=== PATIENT | male | born 1970 | race Caucasian/White ===

== ENCOUNTER 2020-01-24 09:09 | Observation (INO) | payer SELFPAY ==
[2020-01-24] MEDS ORDERED: Morphine 4 MG/ML VIAL SLOW IVP PRN (10:36)
[2020-01-24] MEDS ORDERED: Nitroglycerin 0.4 MG TAB (25 Tab Bottle) SL PRN (10:36)
[2020-01-24] MEDS ORDERED: Aspirin 325 mg Enteric Coated Tablet PO SCH (11:00)
[2020-01-24 12:32] VITALS: BMI 32.3
[2020-01-24 13:09] LABS: Troponin I Less than 0.010 ng/mL (< 0.028)
[2020-01-24] MEDS ORDERED: Ketorolac Tromethamine 30 MG/ML VIAL IVP SCH (18:15)
[2020-01-24] MEDS ORDERED: Sodium Chloride 0.9% 10 ML ONE (20:34)
--- NOTE | 2020-01-24 20:57 | HP ---
CHIEF COMPLAINT: Chest pain. HISTORY OF PRESENT ILLNESS: The patient is a 49-year-old male with a past medical history of hypertension, who presents to the hospital with complaints of chest tightness x1 day. The patient stated that the pain woke him up around 5 this a.m. He felt a sharp pain, then felt some tightness. He stated that he got up, sat up and drank some water, walked around and then the pain subsided. However, he continued to have this pain, so his brought him to the hospital. He denies any nausea or vomiting, however, felt a little cold. No diaphoresis. He denies any radiation of the pain except from his chest area to his back. Denies any shortness of breath, orthopnea, or PND. The patient states that this has happened to him once before, which resolved spontaneously. He denies any heavy lifting and has not been stressed recently. PAST MEDICAL HISTORY: He has a history of hypertension. He has a history of adult asthma, however, is currently not on any medications for that. PAST SURGICAL HISTORY: He has had appendectomy. FAMILY HISTORY: Mother had heart failure. Father had cancer. SOCIAL HISTORY: He smokes a pack a week and drinks socially. However, yesterday, he had four beers. Denies any drug use. He is a full code. Lives with his . REVIEW OF SYSTEMS: All negative except for the ones mentioned above in the HPI. PHYSICAL EXAMINATION: VITAL SIGNS: Temperature 98.7, 63, 18, 98% on room air, 124/82. GENERAL: He is awake, alert, and oriented x3. Does not appear in distress. CV: S1, S2 present. No murmurs, rubs, or gallops. LUNGS: Clear to auscultation. No rhonchi or wheezes noted. ABDOMEN: Soft. Bowel sounds present x2. Mild pain upon palpation to his epigastric and right upper quadrant. EXTREMITIES: No edema. Pedal pulses present x2. NEUROLOGIC: No focal deficits noted. SKIN: No cuts, lesions or bruises noted. LABORATORY DATA: Upon reviewing Liliana, most of his labs appear to be normal. WBCs of 6.9, hemoglobin of 15.5, hematocrit of 49.1, platelets of 208. Chemistry; sodium of 140, potassium 4.3, BUN of 11, creatinine 1.16. Troponin x3 were negative. TSH was normal. His LFTs were completely normal. His urine was not tested. He did have a CT dissection, which indicated a 2 cm gallstone at the fundus. Aortic dissection was noted. All pulmonary embolism was noted. ASSESSMENT AND PLAN: 1. The patient is a very pleasant 49-year-old male, who presents to the hospital with chest pain, which appears atypical in nature. Differential is of course cardiac versus musculoskeletal versus gastroesophageal reflux disease. The patient states that his pain gets worse when he lies back and he describes it as a sharp pain. Also pericarditis is definitely a possibility. We will go ahead and get an echocardiogram on this patient. We will start patient on some Toradol and some Protonix. Also, stress test has already been ordered, first part has been done, second part is pending for tomorrow. We will also get a right upper quadrant ultrasound. However, unlikely to be gallbladder etiology since his LFTs are completely normal and the stone is at the fundus. Also, I will go ahead and get an echocardiogram and continue to monitor, unlikely to be pulmonary related since his lungs are completely clear. I did ask him if he has a history of anxiety, he states that he does sometimes gets anxious, however his anxiety attacks are quite different. 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 However, his troponins x3 has been negative. 2. Hypertension. We will continue his home medications. 3. Deep venous thrombosis prophylaxis. We will put patient on SCDs. Job ID: [id number]
[2020-01-24] MEDS: Atorvastatin Calcium 40 MG TAB PO SCH (21:02)
[2020-01-25] MEDS ORDERED: Sodium Chloride 0.9% 10 ML ONE (02:25)
[2020-01-25] MEDS: Ketorolac Tromethamine 30 MG/ML VIAL IVP SCH ×3 (02:29→19:19)
[2020-01-25] MEDS: Enoxaparin Sodium 40 MG/0.4 ML SYRINGE SC SCH (08:55)
[2020-01-25] MEDS ORDERED: Aspirin 325 mg Enteric Coated Tablet PO SCH (09:00)
[2020-01-25 09:25] LABS: #Eosinphils 0.1 thou/uL (0.0-0.7); #Lymphocytes 1.3 thou/uL (1.20-3.40); #Monocytes 0.5 thou/uL (0.11-0.59); #Neutrophils 3.1 thou/uL (1.40-6.50); %Basophils 0.2 % (0.0-1.0); %Eosinophils 1.7 % (0.0-10.0); %Lymphocytes 25.3 % (21.0-51.0); %Monocytes 9.2 % (0.0-10.0); %Neutrophils 63.5 % (42.0-75.0); Hemoglobin 15.6 g/dL (14.0-18.0); Mean Corpuscular Hemoglobin 32.5 pg (27.0-31.0); Mean Corpuscular Volume 95.6 fL (78.0-98.0); Mean Platelet Volume 8.4 fL (7.4-10.4); Platelet Count 194 thou/uL (130-400); RBC Distribution Width 11.8 % (11.5-14.5); Red Blood Cell (RBC) Count 4.79 mill/uL (4.70-6.10); White Blood Cell (WBC) Count 4.9 thou/uL (4.8-10.8)
[2020-01-25 09:45] LABS: Anion Gap 12 mmol/L (10-20); BUN (Urea Nitrogen) 17 mg/dL (8.9-20.6); Calc. Creatinine Clearance 119 mL/min (70-130); Calcium 9.3 mg/dL (7.8-10.44); Carbon Dioxide 24 mmol/L (22-29); Chloride 106 mmol/L (98-107); Estimated GFR-MDRD 70; Glucose 106 mg/dL (70-105); Potassium 4.6 mmol/L (3.5-5.1); Sodium 137 mmol/L (136-145)
[2020-01-25] MEDS ORDERED: ADENOSINE 60 MG/20 ML VIAL ONE (10:09)
--- NOTE | 2020-01-25 10:21 | ULT ---
RIGHT UPPER QUADRANT ULTRASOUND: HISTORY: History of abdominal pain. COMPARISON: CTA aortic dissection protocol dated 01/24/2020. FINDINGS: There is diffuse fatty liver. There is a small gallstone within the gallbladder. There is mild gall bladder wall thickening. There is report of a positive sonographic Dai's sign. The pancreas is l argely obscured by overlying bowel gas. There is appropriate hepatopetal flow within the main portal vein. The common bile duct is normal measuring 3.9 mm. The right kidney measured 9.8 cm in length without evidence of hydronephrosis. IMPRESSION: 1. Cholelithiasis, gallbladder wall thickening, and report of sonographic Dai's sign is suspiciou s for acute calculus cholecystitis. 2. Fatty liver. POS: BH
--- NOTE | 2020-01-25 11:37 | NM ---
Nuclear medicine Cardiac myocardial perfusion SPECT Ejection fraction study Wall motion cine: DATE:01/24/2020 10:35 AM INDICATION: Chest pain TECHNIQUE: Number of days:2 Rest Study: Technetium 99m-sestamibi (Cardiolite) dose:27.7 mCi Stress study: Technetium 99m-sestamibi (Cardiolite) dose:32.90 mCi FINDINGS: Cardiac (myocardial perfusion) SPECT There are no reversible myocardial perfusion defects. Ejection fraction study Left ventricular EF = 69% Wall motion cine Normal wall motion and thickening. IMPRESSION: No evidence of reversible myocardial ischemia.
--- NOTE | 2020-01-25 11:46 | PDOC.HOSPP ---
- Subjective Encounter Date: 01/25/20 Encounter Time: 11:45 Subjective: Mr. Borges was seen today in follow-up of chest pain. He notes some soreness in the right mid chest region, when he takes in a breath. He notes some indigestion off and on as well. - Objective Vital Signs & Weight: Vital Signs (12 hours) Temp Pulse Resp BP Pulse Ox 01/25/20 08:05 97.6 F 72 14 109/75 96 01/25/20 07:10 97 01/25/20 05:26 96 01/25/20 03:22 97.8 F 73 20 120/64 96 Weight Weight 229 lb 11.2 oz I&O: 01/24/20 01/25/20 01/26/20 06:59 06:59 06:59 Intake Total 740 Balance 740 Result Diagrams: 01/25/20 09:02 01/25/20 09:02 Hospitalist ROS - Medication Medications: Active Medications Generic Name Dose Route Start Last Admin Trade Name Freq PRN Reason Stop Dose Admin Aspirin 325 mg 01/25/20 09:00 01/25/20 08:54 Ecotrin PO 325 mg DAILY TATE Administration Atorvastatin Calcium 40 mg 01/24/20 21:00 01/24/20 21:02 Lipitor PO 40 mg HS TATE Administration Enoxaparin Sodium 40 mg 01/25/20 09:00 01/25/20 08:55 Lovenox SC 40 mg 0900 TATE Administration Ketorolac Tromethamine 15 mg 01/25/20 02:00 01/25/20 09:18 Toradol IVP 01/25/20 18:01 15 mg 0200,1000,1800 TATE Administration Pantoprazole Sodium 40 mg 01/25/20 09:00 01/25/20 08:55 Protonix PO 40 mg DAILY TATE Administration - Exam Eye: PERRL, anicteric sclera Heart: RRR, no murmur, no gallops, no rubs Respiratory: CTAB, no wheezes, no rales, no ronchi, normal chest expansion Gastrointestinal: soft (+ RUQ tenderness and epigastric tenderness, no rebound or guarding) Extremities: no cyanosis, no edema Hosp A/P (1) Chest pain Code(s): R07.9 - CHEST PAIN, UNSPECIFIED Status: Acute (2) Biliary colic Code(s): K80.50 - CALCULUS OF BILE DUCT W/O CHOLANGITIS OR CHOLECYST W/O OBST Status: Acute (3) Hypertension Code(s): I10 - ESSENTIAL (PRIMARY) HYPERTENSION Status: Chronic (4) Obesity Code(s): E66.9 - OBESITY, UNSPECIFIED Status: Chronic - Plan * Chest pain / biliary Colic- Stress test is pending * Abdominal ultrasound results noted- I suspect most if not all of his symptoms are related to the gallbladder * HTN- blood pressure is stable
[2020-01-25] MEDS ORDERED: Ondansetron PF 4 MG/2 ML Vial ONE (11:49)
[2020-01-25] MEDS ORDERED: Rocuronium Bromide 10 MG/ML (10ML VIAL) ONE (11:49)
[2020-01-25] MEDS ORDERED: Lidocaine 1% PF 5 ML VIAL ONE (11:49)
[2020-01-25] MEDS ORDERED: Metoprolol Tartrate 5 MG/5 ML VIAL ONE (11:49)
[2020-01-25] MEDS ORDERED: Dexamethasone 20 MG/5 ML VIAL ONE (11:49)
[2020-01-25] MEDS ORDERED: Glycopyrrolate 0.2 MG/ML 5 ML SYRINGE ONE (11:49)
[2020-01-25] MEDS ORDERED: PROPOFOL 200 MG/20 ML VIAL ONE (11:49)
[2020-01-25] MEDS ORDERED: Fentanyl 100 MCG/2 ML VIAL ONE (14:08)
[2020-01-25] MEDS ORDERED: cefOXitin Sodium/Dextrose,Iso 2 GM in Premix Bag 1 BAG IVPB SCH (14:15)
[2020-01-25] MEDS ORDERED: cefOXitin 2 GM in Sodium Chloride 0.9% 100 ML IVPB SCH (14:15)
[2020-01-25] MEDS ORDERED: Bupivacaine 0.25% HCL 30 ML VIAL ONE ×2 (14:19→14:27)
[2020-01-25] MEDS ORDERED: EPINEPHrine 1 MG/ML AMP ONE (14:19)
[2020-01-25] MEDS ORDERED: Lidocaine 1% w/Epinephrine 1:100K 20 ML VIAL ONE (14:27)
[2020-01-25 14:35] LABS: INR-International Normal Ratio 0.9; PTT 28.8 sec (22.9-36.1); Prothrombin Time 12.4 sec (12.0-14.7)
[2020-01-25] MEDS ORDERED: Midazolam HCl 2 mg/2 ml Vial ONE (15:03)
[2020-01-25] MEDS ORDERED: traMADol HCl 50 MG TAB PO PRN (16:25)
[2020-01-25] MEDS ORDERED: Ondansetron HCl/PF 4 MG/2 ML Vial IVP PRN (16:41)
[2020-01-25] MEDS ORDERED: Promethazine HCl 25 MG/ML VIAL IM PRN (16:41)
[2020-01-25] MEDS ORDERED: Promethazine HCl 25 MG/ML VIAL SLOW IVP PRN (16:41)
[2020-01-25] MEDS ORDERED: HYDROmorphone 2 MG/ML VIAL SLOW IVP PRN (16:41)
[2020-01-25] MEDS: Acetaminophen 500 MG TAB PO SCH ×2 (19:20→23:35)
--- NOTE | 2020-01-25 19:29 | CON ---
DATE OF CONSULTATION: 01/25/2020 REQUESTING PHYSICIAN: Dr. Mic Angelo. HISTORY: A 49-year-old man with previous history of essential hypertension, for which he takes no medications. The patient was seen in the emergency department yesterday with complaint of acute onset epigastric right upper quadrant abdominal pain, which radiated to his back. Pain woke him up at approximately 0400 hours, associated with some nausea, but no emesis. He experienced similar pain about a month ago. This was also hot top liner. This was not associated with any meals or activity. The patient denies any fevers or chills. He denies any dyspnea or syncope. PAST MEDICAL HISTORY: Pertinent for essential hypertension. He currently takes no medications for it. PAST SURGICAL HISTORY: Pertinent for appendectomy. SOCIAL HISTORY: He is , lives at home with his . He is employed as a local intermodal truck driver. He smokes an equivalent of one pack of cigarettes per day for over 30 years. He admits to occasional intake of ethanol in moderate amount. He denies any illicit drug abuse. FAMILY HISTORY: Notable for heart disease in his mother who from complications thereof. Father was diagnosed with cancer. He does not recall the specifics. He denies any family history of diabetes mellitus or any other gastrointestinal disorders. CURRENT MEDICATIONS: None. The patient, however, did receive some aspirin and prophylactic dose of enoxaparin. ALLERGIES: TO CEPHALEXIN, WHICH ACCORDING TO THE PATIENT GIVES HIM "HOT FLASHES." REVIEW OF SYSTEMS: Ten-point review of systems essentially unremarkable except as stated in past medical history and chief complaint. PHYSICAL EXAMINATION: GENERAL: This reveals a 49-year-old normally developed man, who is otherwise coherent, interactive, and appears stated age. The patient is alert and oriented x3, appears to be in no acute distress at the time of my evaluation. VITAL SIGNS: Include blood pressure 114/73, pulse 76, respiratory rate is 18, temperature is 97.6 degrees Fahrenheit, oxygen saturation is 97% on room air. HEENT: Reveals normocephalic and atraumatic. His pupils are equal, round, reactive to light and accommodation. He has no scleral icterus present. HEART: Reveals regular rate and rhythm. No murmurs or gallops auscultated. LUNGS: Clear to auscultation bilaterally. Breathing, regular and nonlabored. ABDOMEN: Soft and obese. He has right upper quadrant tenderness to palpation. He has a positive Dai sign. Liver and spleen otherwise nonpalpable below costal margins. NEUROLOGIC: Reveals no focal deficits present. LABORATORY FINDINGS: Today include a CBC with 4900 white blood cells, hemoglobin and hematocrit 15.6 and 45.8 respectively, platelet count is 194,000. Metabolic profile: Sodium 137, potassium 4.6, chloride is 106, bicarb is 24, BUN is 17, creatinine is 1.11, glucose is 106. Troponin I from yesterday was less than 0.10. AST and ALT yesterday were normal at 14 and 21 respectively, and so was the total bilirubin at 0.6 mg/dL. I have personally reviewed the abdominal ultrasound which is remarkable for solitary gallstone impacting gallbladder neck. There is gallbladder wall thickening with no pericholecystic fluid present. Common bile duct is normal in diameter for this patient's age at 3.9 mm. IMPRESSION: Acute cholecystitis with cholelithiasis. PLAN: Laparoscopic cholecystectomy. I have advised the patient of the above findings and plan. I have also informed the patient of the risks and benefits of the proposed surgery to include, but not limited to, bleeding, infection, injury to bile duct or surrounding structures. The patient indicates understanding information I have provided him today in the presence of his and his nurse at bedside. I have answered his questions. The patient has granted consent for the surgical intervention. Thank you again, Dr. Angelo, for allowing me the opportunity to participate in the care of this patient. Job ID: [id number]
[2020-01-25] MEDS: Atorvastatin Calcium 40 MG TAB PO SCH (21:24)
[2020-01-25] MEDS: traMADol HCl 50 MG TAB PO PRN ×2 (21:24→23:57)
--- NOTE | 2020-01-25 21:51 | OP ---
DATE OF PROCEDURE: 01/25/2020 PREOPERATIVE DIAGNOSIS: Acute cholecystitis with cholelithiasis. POSTOPERATIVE DIAGNOSIS: Acute cholecystitis with cholelithiasis. PROCEDURE PERFORMED: Laparoscopic cholecystectomy. ANESTHESIA: General endotracheal. ESTIMATED BLOOD LOSS: 10 mL. FLUIDS GIVEN: 800 mL crystalloids. COUNTS: Sponge and instrument counts were verified as correct x2. COMPLICATIONS: None apparent at the time of operation. INDICATIONS FOR OPERATION: A 49-year-old man presented with recurrent epigastric right upper quadrant abdominal pain, which woke him up this morning. Clinical and radiographic examination are consistent with acute cholecystitis with cholelithiasis, for which the patient was brought to the operating room for cholecystectomy. Findings are consistent with dilated gallbladder in the usual anatomic location, partially encased by omental adhesions. DESCRIPTION OF PROCEDURE: Informed consent was obtained from the patient. He was brought to the operating room, placed in supine position. Following general anesthesia, abdomen was sterilely prepped and draped in usual fashion. The skin below the umbilicus was infiltrated with 0.25% Marcaine with epinephrine. A small curvilinear infraumbilical incision was made using 11 scalpel. Umbilical stalk was grasped with Livia and elevated. Veress needle was inserted through the incision and placed in the peritoneal cavity, through which the abdomen was insufflated with 3 L of CO2 gas. Intraabdominal pressure noted at 2 mmHg. Following abdominal insufflation, Veress needle was removed, and a 5 mm trocar was introduced using a Visiport under laparoscopy. Laparoscopy confirmed proper placement of the port, no injuries to underlying structures. Additional laparoscopy revealed the right upper quadrant partially encased by omental adhesions. Under direct laparoscopy, a 12 mm epigastric and two 5 mm right lateral subcostal ports were placed after the overlying skin was infiltrated with 0.25% Marcaine with epinephrine. Appropriate incision was made. The patient was placed in reverse Trendelenburg position, rotated to his left. I introduced a Prestige grasper through the right lateral subcostal port grasping the fundus of the gallbladder, which was elevated cephalad. Omental adhesions were carefully taken down from the gallbladder using cautery with good hemostasis. A second Prestige grasper was introduced through the right medial subcostal port grasping the Cris pouch, which was retracted laterally. I opened the peritoneum of the gallbladder at the infundibulum using a [place] dissector. The cystic duct and artery were dissected free from surrounding structures and visualized as they entered the gallbladder and infundibulum. The common bile duct was not visualized inferiorly. The cystic duct was divided between clips applying 2 clips proximally and 1 clip at the junction of the cystic duct and gallbladder. The cystic artery was divided between clips in a similar fashion. The gallbladder itself was removed from the liver bed using cautery with good hemostasis. This was delivered of the abdominal cavity using an EndoCatch. Operative site was inspected for good hemostasis. All clips remained in place. No bile stains or active bleeding noted. Finding, no other pathology. Laparoscopy was terminated. Fascia of the epigastric port was closed using 0 Vicryl suture and Endo Close device on the laparoscopy. The abdomen was desufflated. All ports and instruments removed and accounted for. Skin incisions were closed using 4-0 Monocryl suture in subcuticular fashion. Dermabond was applied over incisional closure. The patient tolerated the operation without any apparent complication and was returned to recovery room in satisfactory condition. Job ID: [id number]
[2020-01-25] MEDS ORDERED: Ketorolac Tromethamine 30 MG/ML VIAL IVP SCH (23:45)
[2020-01-26] MEDS ORDERED: HYDROcodone/Acetaminophen 7.5/325 mg Tablet PO SCH (01:30)
--- NOTE | 2020-01-26 01:34 | PRG ---
DATE OF SERVICE: 01/26/2020 SUBJECTIVE: The patient was admitted today as a transfer for evaluation of abdominal pain, underwent evaluation and examination, was noted to have acute cholecystitis with cholelithiasis in which he underwent laparoscopic cholecystectomy today. He tolerated this procedure well and at the time of my visit, he was having some abdominal pain without nausea and it appeared that it may have been from changes in his pain medications as his initial admission was for rule out cardiac chest pain. OBJECTIVE: VITAL SIGNS: Stable. He is afebrile. He is nontachycardic. His respirations are nonlabored. ABDOMEN: Soft without gross peritoneal signs. His postop dressing is clean, dry, and intact. ASSESSMENT/PLAN: 1. Acute cholecystitis with cholelithiasis. 2. Status post laparoscopic cholecystectomy. PLAN: Plan will be to adjust his pain medications. Continue his diet. Repeat his labs in the morning and likely be discharged tomorrow or soon thereafter. Job ID: [id number]
[2020-01-26 06:18] LABS: #Lymphocytes 0.9 thou/uL (1.20-3.40); #Monocytes 0.6 thou/uL (0.11-0.59); #Neutrophils 9.2 thou/uL (1.40-6.50); %Basophils 0.1 % (0.0-1.0); %Eosinophils 0.2 % (0.0-10.0); %Lymphocytes 8.7 % (21.0-51.0); %Monocytes 5.4 % (0.0-10.0); %Neutrophils 85.6 % (42.0-75.0); Hemoglobin 14.7 g/dL (14.0-18.0); Mean Corpuscular HGB CONC 34.6 g/dL (32.0-36.0); Mean Corpuscular Hemoglobin 32.8 pg (27.0-31.0); Mean Corpuscular Volume 94.7 fL (78.0-98.0); Mean Platelet Volume 8.7 fL (7.4-10.4); Platelet Count 202 thou/uL (130-400); RBC Distribution Width 11.7 % (11.5-14.5); White Blood Cell (WBC) Count 10.8 thou/uL (4.8-10.8)
[2020-01-26] MEDS: Acetaminophen 500 MG TAB PO SCH ×2 (06:19→12:18)
[2020-01-26 06:42] LABS: ALT (SGPT) 35 U/L (8-55); AST (SGOT) 26 U/L (5-34); Albumin 3.9 g/dL (3.5-5.0); Alkaline Phosphatase 47 U/L (40-110); Anion Gap 14 mmol/L (10-20); BUN (Urea Nitrogen) 16 mg/dL (8.9-20.6); Bilirubin, Direct 0.2 mg/dL (0.1-0.3); Bilirubin, Total 0.6 mg/dL (0.2-1.2); Calc. Creatinine Clearance 119 mL/min (70-130); Calcium 8.9 mg/dL (7.8-10.44); Carbon Dioxide 22 mmol/L (22-29); Chloride 106 mmol/L (98-107); Estimated GFR-MDRD 70; Glucose 122 mg/dL (70-105); Potassium 4.6 mmol/L (3.5-5.1); Protein, Total 6.6 g/dL (6.0-8.3); Sodium 137 mmol/L (136-145)
--- NOTE | 2020-01-26 07:52 | PDOC.HOSPP ---
- Objective Vital Signs & Weight: Vital Signs (12 hours) Temp Pulse Resp BP Pulse Ox 01/26/20 04:38 98.1 F 63 16 113/69 95 01/26/20 02:30 97 01/25/20 23:38 97.9 F 72 16 118/81 96 Weight Weight 229 lb 11.2 oz I&O: 01/25/20 01/26/20 01/27/20 06:59 06:59 06:59 Intake Total 740 1191 Output Total 675 Balance 740 516 Result Diagrams: 01/26/20 05:30 01/26/20 05:30 Hospitalist ROS - Medication Medications: Active Medications Generic Name Dose Route Start Last Admin Trade Name Freq PRN Reason Stop Dose Admin Acetaminophen 1,000 mg 01/25/20 18:00 01/26/20 06:19 Tylenol PO 1,000 mg Q6HR TATE Administration Aspirin 325 mg 01/25/20 09:00 01/25/20 08:54 Ecotrin PO 325 mg DAILY TATE Administration Atorvastatin Calcium 40 mg 01/24/20 21:00 01/25/20 21:24 Lipitor PO 40 mg HS TATE Administration Enoxaparin Sodium 40 mg 01/25/20 09:00 01/25/20 08:55 Lovenox SC 40 mg 0900 TATE Administration Pantoprazole Sodium 40 mg 01/25/20 09:00 01/25/20 08:55 Protonix PO 40 mg DAILY TATE Administration Tramadol HCl 50 mg 01/25/20 16:25 01/25/20 23:57 Ultram PO 50 mg Q6H PRN Administration Moderate Pain (4-6) Hosp A/P (1) Chest pain Code(s): R07.9 - CHEST PAIN, UNSPECIFIED Status: Acute (2) Biliary colic Code(s): K80.50 - CALCULUS OF BILE DUCT W/O CHOLANGITIS OR CHOLECYST W/O OBST Status: Acute (3) Hypertension Code(s): I10 - ESSENTIAL (PRIMARY) HYPERTENSION Status: Chronic (4) Obesity Code(s): E66.9 - OBESITY, UNSPECIFIED Status: Chronic - Plan * Chest pain / biliary Colic- Stress test is pending * Abdominal ultrasound results noted- I suspect most if not all of his symptoms are related to the gallbladder * HTN- blood pressure is stable
[2020-01-26] MEDS: Enoxaparin Sodium 40 MG/0.4 ML SYRINGE SC SCH (09:00)
[2020-01-26 11:38] VITALS: BP 112/73; TEMP 98.1
--- NOTE | 2020-01-26 18:55 | PRG ---
DATE OF SERVICE: 01/26/2020 SUBJECTIVE: Mr. Borges is a 49-year-old man postop day #1, status post laparoscopic cholecystectomy. The patient is awake and alert today. He reports adequate pain control. He is tolerating general diet having normal bowel and urinary function. Abdomen is soft. Incisions remain intact, clean, and dry. He has no peritoneal signs on examination. LABORATORY FINDINGS: Today includes a CBC with 10,800 white blood cells, hemoglobin and hematocrit stable at 14.7 and 42.6 respectively. Platelet count is 202,000. Metabolic profile; sodium 137, potassium 4.6, chloride is 106, bicarb is 22, BUN 16, creatinine is 1.11, glucose 122, total bilirubin 0.6, and AST and ALT normal at 26 and 35 respectively. The patient is deemed hemodynamically stable for discharge at the discretion of the primary service. He may follow up with me in the Surgery Clinic in 2 weeks. He was given a prescription for tramadol 50 mg to be taken 1 to 2 p.o. q.6 hours p.r.n. breakthrough pain. He may take Tylenol 1000 mg p.o. q.6 hours alternating this with ibuprofen 600 mg p.o. q.8 hours p.r.n. pain. The patient is to call me with any questions or problems including exacerbation of including exam, exacerbation of abdominal pain, intolerance to oral intake, fever in excess of 101 degrees Fahrenheit, or any abnormal drainage from the incisional wounds. He may shower effective tomorrow. He is to avoid soaking himself in a bathtub or swimming for the next 2 weeks. He is to avoid weight lifting in excess of 20 pounds for two weeks. Job ID: [id number]
--- NOTE | 2020-01-26 20:06 | DIS ---
DATE OF ADMISSION: 01/24/2020 DATE OF DISCHARGE: 01/26/2020 DISCHARGE DISPOSITION: Home. DISCHARGE DIAGNOSES: 1. Acute cholecystitis. 2. Obesity. DISCHARGE MEDICATIONS: Tramadol 50 mg q.i.d. as needed. IMAGING DONE DURING HOSPITAL STAY: The patient had a nuclear stress test, which was negative. The patient had an abdominal ultrasound showing cholelithiasis and some gallbladder wall thickening and a positive sonographic Dai sign. The patient had an echocardiogram in which the ejection fraction was estimated at 55% to 60%. There was some E:A flow reversal suggestive of diastolic dysfunction. CODE STATUS: Full code. ALLERGIES: TO CEPHALEXIN. HOSPITAL COURSE: Mr. Borges is a pleasant 49-year-old gentleman, who presented to the emergency room complaining of pain in the chest, which was radiating toward his back between the shoulder blades. He had also noted problems when he would eat greasy foods over the past few months leading up to this. He was placed in observation and his symptoms are suspicious for both cardiac, as well as GI origin. For this reason, a stress test was obtained, which was negative and an echocardiogram also did not show any significant cardiac pathology. An abdominal ultrasound showed some evidence of gallbladder wall thickening and a positive Dai sign and for this reason, surgery consult was obtained. The patient was felt to have acute cholecystitis and underwent laparoscopic cholecystectomy. He had an uneventful postoperative course and was able to be discharged home and to have early follow up with Dr. Mariano and then also with his primary care physician in 1 to 2 weeks. Job ID: [id number]
--- NOTE | 2020-01-28 17:34 | EKG ---
Test Reason : CP Blood Pressure : / mmHG Vent. Rate : 070 BPM Atrial Rate : 070 BPM P-R Int : 176 ms QRS Dur : 076 ms QT Int : 384 ms P-R-T Axes : 034 035 039 degrees QTc Int : 414 ms Normal sinus rhythm Septal infarct , age undetermined Abnormal ECG Confirmed by GERARD WELLS, CHANA Hughes ([id number]), news assignment editor JAIRO FLORES ([id number]) on 01/28/2020 5:34:23 PM Referred By: Confirmed By:CHANA GEE MD
== END 2020-01-26 12:43 | disposition home or self-care (01) ==
LOC: ERS 09:09 → 2NO 10:52 → SURG A 01-25 18:12
PROVIDERS: ADMIT Internal Medicine; ATTEND Internal Medicine
PROC: 0FT44ZZ Resection of Gallbladder, Percutaneous Endoscopic Approach (ICD-10-PCS; principal; 2020-01-25)
DX: K80.66 Calculus of gallbladder and bile duct with acute and chronic cholecystitis without obstruction (principal); K66.0 Peritoneal adhesions (postprocedural) (postinfection); R07.89 Other chest pain; I10 Essential (primary) hypertension; F17.210 Nicotine dependence, cigarettes, uncomplicated; E66.9 Obesity, unspecified; Z68.32 Body mass index [BMI] 32.0-32.9, adult; Z88.1 Allergy status to other antibiotic agents
CPT/HCPCS: 36415; 76705; 78452; 80048; 80076; 85025; 85610; 85730; 86850; 86900; 86901; 88304; 93005; 93017; 93306; 94760; 96372; A9500; G0378; J0153; J0171; J0694; J1100; J1650; J1885; J2250; J2405; J2704; J3010; S0020